=== PATIENT | male | born 1935 | race Caucasian/White ===

== ENCOUNTER 2017-05-20 01:46 | Outpatient (CLI) | payer MEDICARE | END 2017-05-20 01:47 | disposition critical access hospital (66) | LOC: EMS 01:46 | PROVIDERS: ATTEND Surgery | DX: R42 Dizziness and giddiness (principal); R11.2 Nausea with vomiting, unspecified | CPT/HCPCS: A0425; A0427 ==

== ENCOUNTER 2017-05-20 02:23 | Emergency (ER) | payer MEDICARE ==
--- NOTE | 2017-05-20 03:26 | ED Physician Documentation ---
PD HPI ALTERED MENTAL STATUS - Stated complaint Stated Complaint: LIGHT HEADED/DIZZY/N/V - Chief complaint Chief Complaint: Neuro - History obtained from History obtained from: Patient - History of Present Illness Timing - onset: How many days ago (2) Timing - duration: Days (2) Timing - details: Abrupt onset, Intermittant Quality / character: Other (feeling dizzy when got up yesterday, lasting few minutes. Again today with movement or change of position, but also having some nausea and somewhat a pressure feeling in head.). No: Confused, Disoriented Associated symptoms: No: Fever, Headache, Dyspnea, Cough, General weakness, Focal weakness, Seizure activity, Syncope Contributing factors: Diabetic, Recent med change (changed B12 dose 4 days ago ( from 1 to 2 tabs daily) and also increased iron dose.). No: Anticoagulated, New medication, Recent illness, Recent injury Basline status: Alert and oriented X 3, Ambulatory Similar symptoms before: Has not had sx before Recently seen: Clinic Review of Systems Constitutional: denies: Fever, Chills Eyes: denies: Decreased vision Ears: denies: Ear pain, Drainage/discharge Nose: denies: Rhinorrhea / runny nose, Congestion Throat: denies: Sore throat Cardiac: denies: Chest pain / pressure, Palpitations Respiratory: denies: Dyspnea, Cough GI: reports: Nausea. denies: Abdominal Pain, Vomiting, Diarrhea Skin: denies: Rash, Lesions Neurologic: denies: Focal weakness, Numbness, Near syncope, Altered mental status, Head injury PD PAST MEDICAL HISTORY - Past Medical History Past Medical History: Yes Cardiovascular: Hypertension, High cholesterol Endocrine/Autoimmune: Type 2 diabetes : Kidney stones - Past Surgical History General: Appendectomy, Colonoscopy - Present Medications Home Medications: Ambulatory Orders Medication Instructions Recorded Confirmed Losartan [Cozaar] 100 mg PO DAILY 01/23/13 04/08/17 Metformin HCl 1,000 mg PO BID 01/23/13 04/08/17 Metoprolol Succinate [Toprol Xl] 25 mg PO BID 01/23/13 04/08/17 Simvastatin 20 mg PO DAILY 01/23/13 04/08/17 Glimepiride 2 mg PO DAILY 12/20/14 04/08/17 - Allergies Allergies/Adverse Reactions: Allergies Allergy/AdvReac Type Severity Reaction Status Date / Time No Known Drug Allergies Allergy Verified 05/20/17 02:32 - Social History Does the pt smoke?: No Smoking Status: Never smoker Does the pt drink ETOH?: Yes Does the pt have substance abuse?: No - Immunizations Immunizations are current?: No Immunizations: TDAP >10years/unknown PD ED PE NORMAL - Vitals Vital signs reviewed: Yes - General General: Alert and oriented X 3, No acute distress, Well developed/nourished - HEENT HEENT: Atraumatic, PERRL, EOMI (with mild nystagmus to the right), Ears normal, Moist mucous membranes, Pharynx benign - Neck Neck: Supple, no meningeal sign, No adenopathy, No JVD, No bruit - Cardiac Cardiac: RRR, No murmur - Respiratory Respiratory: Clear bilaterally - Abdomen Abdomen: Soft, Non tender - Back Back: No CVA TTP - Derm Derm: Normal color, Warm and dry - Extremities Extremities: No tenderness to palpate, Normal ROM s pain, No edema - Neuro Neuro: Alert and oriented X 3, beef boner 2-12 intact, No motor deficit, No sensory deficit, Normal speech, Other - Psych Psych: Normal mood, Normal affect Results - Vitals Vitals: Oxygen O2 Source Room air - Labs Labs: Laboratory Tests 05/20/17 05/20/17 05/20/17 04:56 04:56 04:56 WBC 5.6 RBC 3.69 L Hgb 13.2 L Hct 38.2 L MCV 103.4 H MCH 35.8 H MCHC 34.6 RDW 14.1 Plt Count 43 L MPV 7.1 L Neut # 4.2 Lymph # 0.9 L [place] # 0.4 Eos # 0.2 Baso # 0.0 Absolute Nucleated RBC 0.00 Nucleated RBCs 0.0 Sodium 141 Potassium 4.4 Chloride 107 Carbon Dioxide 22 Anion Gap 12.0 BUN 14 Creatinine 0.8 Estimated GFR (MDRD) 93 Glucose 198 H Calcium 9.2 Magnesium 1.5 L Total Bilirubin 1.3 H AST 50 H ALT 32 Alkaline Phosphatase 112 Total Protein 6.6 L Albumin 3.5 Globulin 3.1 Albumin/Globulin Ratio 1.1 Lipase 68 H Vitamin B12 826 - Rads (name of study) head CT Radiology: Prelim report reviewed (no signs of bleeding nor acute changes) PD MEDICAL DECISION MAKING - ED course Complexity details: reviewed results, considered differential (dizziness the past 2 days. Had increased B12 dose 4 days ago and this can be side effects of it. To decrease dose again. Otherwise seems vertigo and presume inner ear. ), d/ w patient Departure - Departure Disposition: 01 Home, Self Care Clinical Impression: Dizziness Condition: Stable Record reviewed to determine appropriate education?: Yes Instructions: ED Dizziness [facility] Follow-Up: Carson Samuel MD [Primary Care Provider] - Comments: Drink adequate fluids. Your symptoms could be related to vitamin B12 and since you have increased the dose to 2 tablets this past week, that would be a possibility. Resume just 1 tablet a day and to follow-up with Dr. Samuel your primary care. Keep other medications the same. Return if worsening symptoms or other problems develop. Discharge Date/Time: 05/20/17 06:30
[2017-05-20] MEDS ORDERED: SODIUM CHLORIDE 0.9% 500 ML IV ONE (04:12)
--- NOTE | 2017-05-20 04:55 | CT Preliminary Report ---
Exam: CT Head W/O IMPRESSION: 1. No evidence of infarct, hemorrhage, or other acute abnormality. 2. Mild ventricular megaly likely secondary to central volume loss. Mild microvascular change. 3. Vascular calcifications. [facility] SITE ID: [id number]
--- NOTE | 2017-05-20 04:58 | CT Report ---
EXAM: CT HEAD EXAM DATE: 05/20/2017 04:47 AM. CLINICAL HISTORY: Dizzy, off balance, nausea and vomiting. COMPARISON: None. TECHNIQUE: Multiaxial CT images were obtained from the foramen magnum to the vertex. IV contrast: Non e. Reformats: Coronal. In accordance with CT protocol optimization, one or more of the following dose reduction techniques w ere utilized for this exam: automated exposure control, adjustment of mA and/or KV based on patient s ize, or use of iterative reconstructive technique. FINDINGS: Parenchyma: No intraparenchymal hemorrhage. No evidence of mass, midline shift, or CT findings of inf arction. Mild low density involving central/central white matter bilateral cerebral hemispheres. No e vidence of prior large vascular territory infarct. Extraaxial Spaces: Normal for age. No subdural or epidural collections identified. Ventricles: There is mild ventriculomegaly. There is similar degree of prominence of sulci. No mass e ffect. No midline shift. Sinuses: Imaged paranasal sinuses, orbits, and mastoids show no significant abnormality. Bones: No evidence of fracture or calvarial defect. Other: None. IMPRESSION: 1. No evidence of infarct, hemorrhage, or other acute abnormality. 2. Mild ventricular megaly likely secondary to central volume loss. Mild microvascular change. 3. Vascular calcifications. [facility] Referring Provider Line: [phone] SITE ID: [id number]
[2017-05-20 05:02] LABS: BASOPHILS % (AUTO) 0.2 %; EOSINOPHILS # (AUTO) 0.2 10^3/uL (0.0-0.7); EOSINOPHILS % (AUTO) 2.7 %; HCT - HEMATOCRIT 38.2 % (42.0-52.0); HGB - HEMOGLOBIN 13.2 g/dL (14.0-18.0); LYMPHOCYTES # (AUTO) 0.9 10^3/uL (1.5-3.5); LYMPHOCYTES % (AUTO) 16.7 %; MEAN CORPUSCULAR HEMOGLOBIN 35.8 pg (27.0-31.0); MEAN CORPUSCULAR HGB CONC 34.6 g/dL (32.0-36.0); MEAN CORPUSCULAR VOLUME 103.4 fL (80.0-94.0); MEAN PLATELET VOLUME 7.1 fL (7.4-11.4); MONOCYTES # (AUTO) 0.4 10^3/uL (0.0-1.0); MONOCYTES % (AUTO) 6.8 %; NEUTROPHILS # (AUTO) 4.2 10^3/uL (1.5-6.6); NEUTROPHILS % (AUTO) 73.6 %; RED BLOOD COUNT 3.69 10^6/uL (4.70-6.10); RED CELL DISTRIBUTION WIDTH 14.1 % (12.0-15.0); UNCORRECTED WHITE BLOOD COUNT 5.6 x10^3/uL; WHITE BLOOD COUNT 5.6 x10^3/uL (4.8-10.8)
[2017-05-20 05:23] LABS: ALBUMIN/GLOBULIN RATIO 1.1 (1.0-2.2); BILIRUBIN,TOTAL 1.3 mg/dL (0.2-1.0); CALCIUM 9.2 mg/dL (8.5-10.3); CREATININE 0.8 mg/dL (0.6-1.2); MAGNESIUM 1.5 mg/dL (1.7-2.8); POTASSIUM 4.4 mmol/L (3.5-5.0); TOTAL PROTEIN 6.6 g/dL (6.7-8.2)
[2017-05-20 06:30] VITALS: BP 135/58
== END 2017-05-20 06:30 | disposition home or self-care (01) ==
LOC: EDUNIT# → ED 02:23 → SUPCPDRO 02:23 → ED 06:30
DX: R42 Dizziness and giddiness (principal); I10 Essential (primary) hypertension; E78.00 Pure hypercholesterolemia, unspecified; E11.9 Type 2 diabetes mellitus without complications
CPT/HCPCS: 36415; 70450; 80053; 82607; 83690; 83735; 85025; 99284

== ENCOUNTER 2017-10-28 09:19 | Outpatient (CLI) | payer MEDICARE ==
--- NOTE | 2017-10-28 12:25 | XRAY Report ---
TWO VIEW CHEST: 10/28/2017 CLINICAL INDICATION: Cough. FINDINGS: Frontal and lateral views of the chest demonstrate a normal cardiac silhouette. The lungs are clear. No effusion or pneumothorax is present. There has been no significant interval change from 02/15/2009. IMPRESSION: NO EVIDENCE OF ACUTE CARDIOPULMONARY DISEASE. NO SIGNIFICANT INTERVAL CHANGE. TD: 10/28/2017 12:24
== END 2017-10-28 09:20 | disposition home or self-care (01) ==
LOC: DI 09:19
PROVIDERS: ATTEND Internal Medicine Hematology & Oncology
DX: R05 Cough (principal)
CPT/HCPCS: 71046

== ENCOUNTER 2017-11-16 11:05 | Outpatient (CLI) | payer MEDICARE | END 2017-11-16 11:06 | disposition home or self-care (01) | LOC: DI 11:05 | PROVIDERS: ATTEND Family Medicine | DX: R60.0 Localized edema (principal); I51.9 Heart disease, unspecified; I51.7 Cardiomegaly | CPT/HCPCS: 93306 ==

== ENCOUNTER 2017-11-29 08:00 | Outpatient (CLI) | payer MEDICARE ==
[2017-11-29 18:17] LABS: CALCIUM 9.2 mg/dL (8.5-10.3); CREATININE 1.6 mg/dL (0.6-1.2)
== END 2017-11-29 08:01 | disposition home or self-care (01) ==
LOC: LAB.F 08:00
PROVIDERS: ATTEND Internal Medicine Gastroenterology
DX: K74.60 Unspecified cirrhosis of liver (principal)
CPT/HCPCS: 36415; 80048

== ENCOUNTER 2017-12-06 13:57 | Outpatient (CLI) | payer MEDICARE ==
[2017-12-06 19:53] LABS: CALCIUM 9.2 mg/dL (8.5-10.3); CREATININE 1.4 mg/dL (0.6-1.2)
== END 2017-12-06 13:58 | disposition home or self-care (01) ==
LOC: LAB.F 13:57
PROVIDERS: ATTEND Internal Medicine Gastroenterology
DX: K74.60 Unspecified cirrhosis of liver (principal)
CPT/HCPCS: 36415; 80048

== ENCOUNTER 2017-12-09 17:40 | Outpatient (CLI) | payer MEDICARE | END 2017-12-09 17:41 | disposition short-term general hospital (02) | LOC: EMS 17:40 | PROVIDERS: ATTEND Surgery | DX: R53.1 Weakness (principal); R06.00 Dyspnea, unspecified; R42 Dizziness and giddiness | CPT/HCPCS: A0425; A0427 ==